=== PATIENT | female | born 1980 | race Caucasian/White ===

== ENCOUNTER 2017-07-25 12:17 | Emergency (ER) | payer MEDICAID, OTHER ==
--- NOTE | 2017-07-25 12:38 | UC ---
Ear Complaint HPI - HPI Summary HPI Summary: pt with head and chest congestion x 5 days. Pt states yesterday sneeze and felt sudden pressure in left ear. Pt states woke this morning and there was blood on pillow. Pt states has discomfort and muffled hearing from left side. Pt took APAP Pt's medications rviewed this visit - History of Current Complaint Stated Complaint: (L) EAR COMPLAINT Time Seen by Provider: 07/25/17 12:27 Hx Obtained From: Patient ?: No Onset/Duration: Sudden Onset Severity Initially: Moderate Severity Currently: Moderate Pain Intensity: 7 - Allergies/Home Medications Allergies/Adverse Reactions: Allergies Allergy/AdvReac Type Severity Reaction Status Date / Time No Known Allergies Allergy Verified 07/25/17 12:40 Home Medications: Home Medications Acetaminophen [Acetaminophen Extra Strength] 1,000 mg PO ONCE PRN 07/25/17 [ History Confirmed 07/25/17] Cholecalciferol TAB* [Vitamin D TAB*] 3,000 units PO DAILY 07/25/17 [History Confirmed 07/25/17] Gabapentin [Neurontin] 500 mg PO DAILY 07/25/17 [History Confirmed 07/25/17] Labetalol TAB* [Trandate TAB*] 200 mg PO BID 07/25/17 [History Confirmed ] Magnesium Oxide [Magnesium] 800 mg PO DAILY 07/25/17 [History Confirmed 07/25/17 ] Omeprazole CAP* [Prilosec CAP* 20 MG] 20 mg PO DAILY 07/25/17 [History Confirmed 07/25/17] Topiramate [Topiramate ER] 100 mg PO BEDTIME 07/25/17 [History Confirmed ] buPROPion HCl [Bupropion HCl Sr] 450 mg PO DAILY 07/25/17 [History Confirmed 05/13] PMH/Surg Hx/FS Hx/Imm Hx Cardiovascular History: Hypertension GI/ History: Gastroesophageal Reflux - Surgical History Surgical History: None - Family History Known Family History: Positive: Hypertension - Social History Occupation: Works From/At Home Lives: With Family Alcohol Use: None Substance Use Type: None Smoking Status (MU): Light Every Day Tobacco Smoker Review of Systems Constitutional: Negative ENT: Ear Ache All Other Systems Reviewed And Are Negative: Yes Physical Exam Triage Information Reviewed: Yes Appearance: Well-Appearing, Well-Nourished, Pain Distress - mild discomfort left ear Vital Signs Reviewed: Yes Eye Exam: Normal Eyes: Positive: Conjunctiva Clear ENT: Positive: Pharynx normal, Nasal congestion, TM red, Other - right TM wnl left TM; hematomat posterior lateral aspect with visible small peforation 5oclock no active bleeding turbinates inflammed. + pnd no exudate no erythema Dental Exam: Normal Neck exam: Normal Neck: Positive: Supple, Nontender Respiratory Exam: Normal Respiratory: Positive: Chest non-tender, Lungs clear, Normal breath sounds, No respiratory distress, No accessory muscle use Cardiovascular Exam: Normal Cardiovascular: Positive: RRR, No Murmur, Pulses Normal Abdominal Exam: Normal Abdomen Description: Positive: Nontender Musculoskeletal Exam: Normal Neurological Exam: Normal Neurological: Positive: Alert Psychological Exam: Normal Psychological: Positive: Normal Response To Family Skin Exam: Normal Ear Complaint Course/Dx - Course Course Of Treatment: pt with peforation left ear with hematoma and OM. Rx augmentin. Tylenol/T+C#3 - (Barbara wrote rx -difficulty with Dr. Marino my account)- precautions discussed. Dr. Davila - pt established there - tomorrow. return precautions - Differential Dx/Diagnosis Provider Diagnoses: perforated TM. URI Discharge - Sign-Out/Discharge Documenting (check all that apply): Discharge - Discharge Plan Condition: Stable Disposition: HOME Prescriptions: Acetaminophen with Codeine [Acetaminophen-Cod #2 Tablet] 1 - 2 tab PO Q6HR PRN # 15 tablet MDD 8 PRN Reason: Pain Amoxicillin/Clavulanate TAB* [Augmentin TAB 875*] 875 mg PO BID #20 tab Fluticasone NASAL SPRAY 50MCG* [Flonase NASAL SPRAY 50MCG*] 2 spray BOTH NARES DAILY #1 btl Patient Education Materials: Ruptured Eardrum (ED), Ear Infection (ED), Upper Respiratory Infection (ED) Referrals: Bright Benedict MD [Primary Care Provider] - Isaias Davila MD [Medical Doctor] - As Soon As Possible (Call tomorrow morning for an appointment) Additional Instructions: - Okay to take Tylenol product (tylenol or tylenol with codeine) every 3 hours for pain. Take with food. Do NOT drive, operate machinery or drink alcohol while taking codeine - Take antibiotics as prescribed until gone - Use nasal spray as instructed - Avoid getting water in your ear as this may cause severe dizziness - Okay to take over the counter decongestant such as sudafed - Contact Dr. Davila tomorrow morning to schedule a follow-up appointment this week. Contact Dr. Davila or go to the emergency department with questions or concerns - Billing Disposition and Condition Condition: STABLE Disposition: HOME
== END 2017-07-25 13:26 | disposition home or self-care (01) ==
LOC: UCCORT 12:17
DX: H72.92 Unspecified perforation of tympanic membrane, left ear (principal); H66.92 Otitis media, unspecified, left ear; J06.9 Acute upper respiratory infection, unspecified; F17.200 Nicotine dependence, unspecified, uncomplicated
CPT/HCPCS: 99202; G0463

== ENCOUNTER 2018-10-20 09:55 | Emergency (ER) | payer OTHER ==
--- OUTSIDE RECORDS SUMMARY | 2018-10-20 10:15 | XMS REPORT | Continuity of Care Document ---
:1980 External Reference #:[id number] Author Name Pauline Monk Care Team Providers Name Role Phone Bright Benedict MD Care Team Information Life Skills Worker Unavailable Bright Benedict MD Primary Care Physician Unavailable Payers Date Identification Numbers Payment Provider Subscriber Policy Number: [id number] [facility] Ashley Collazo PayID: [id number] [address] [place] [address] Family History Date Family Member(s) Observation Comments Father Non Contributory Mother Non Contributory Social History Type Date Description Comments Sex Unknown Occupation Homemaker Tobacco Use Start: Unknown Patient is a current cigarette smoker, smokes every day ETOH Use Rare Use Of Alcohol Recreational Drug Use Never Used Drugs Allergies, Adverse Reactions, Alerts Description No Known Drug Allergies Medications Active Medications SIG Qnty Indications Ordering Provider Date Fluticasone 2 sprays each 29.7ml Isaias Davila, 07/28/2017 Propionate nostril every day M.D. 50mcg/Act Suspension ALL Day Allergy take 1 tablet by 30tabs Isaias Davila, 07/28/2017 10mg mouth once daily M.D. Tablets If It Makes You Drowsy Take It AT Night Gabapentin 1 by mouth three Unknown 400mg times a day Capsules Gabapentin 1 by mouth twice Unknown 100mg daily for 15 days Capsules Labetalol HCL 1 by mouth twice Unknown 200mg a day Tablets Omeprazole 1 by mouth every Unknown 20mg day Capsules DR Bupropion HCL ER (XL) 1 by mouth every Unknown day 300mg Tablets ER 24HR Bupropion HCL ER (XL) 1 by mouth every Unknown day 150mg Tablets ER 24HR Topiramate take one tablet Unknown 100mg by mouth once a Tablets day Magnesium Oxide 2 by mouth daily Unknown 400mg Tablets Vitamin D 2 by mouth every Unknown (Cholecalciferol) day 1000Unit Tablets B Complex 100 TR Unknown 100TR Tablets ER History Medications Prednisone 1 by mouth every 3tabs Isaias Davila, 07/28/2017 - 10mg Tablets morning M.D. 12/27/2017 Amoxicillin twice a day 1 Unknown - 875mg Tablets week. 12/27/2017 Fluticasone Propionate 2 sprays both Unknown - nostrils every day 07/28/2017 50mcg/Act Suspension Vital Signs Date Vital Result Comment 10/04/2018 10:35am Weight 259.00 lb Height 64.25 inches 5'4.25" BMI (Body Mass Index) 44.1 kg/m2 BP Systolic 111 mmHg BP Diastolic 74 mmHg Heart Rate 85 /min O2 % BldC Oximetry 97 % Body Temperature 98.1 F Pain Level 0 04/05/2018 10:02am Weight 239.00 lb Height 64.25 inches 5'4.25" BMI (Body Mass Index) 40.7 kg/m2 BP Systolic 117 mmHg BP Diastolic 86 mmHg Heart Rate 77 /min O2 % BldC Oximetry 98 % Body Temperature 97.0 F Pain Level 0 12/28/2017 9:54am Weight 242.00 lb Height 64.25 inches 5'4.25" BMI (Body Mass Index) 41.2 kg/m2 BP Systolic 96 mmHg BP Diastolic 67 mmHg Heart Rate 83 /min O2 % BldC Oximetry 96 % Body Temperature 97.8 F Pain Level 0 09/21/2017 1:03pm Weight 235.00 lb Height 64.25 inches 5'4.25" BMI (Body Mass Index) 40.0 kg/m2 BP Systolic 109 mmHg BP Diastolic 71 mmHg Heart Rate 76 /min O2 % BldC Oximetry 97 % Body Temperature 98.7 F Pain Level 0 07/28/2017 4:24pm Weight 239.50 lb Height 64.25 inches 5'4.25" BMI (Body Mass Index) 40.8 kg/m2 BP Systolic 118 mmHg BP Diastolic 78 mmHg Heart Rate 96 /min O2 % BldC Oximetry 99 % room air Body Temperature 99.0 F Pain Level 7 Procedures Date Code Description Status 01/04/2018 96678 Cat Scan Orbit/Ear W/O Contrast,computed tomography Completed 01/04/2018 88543 Cat Scan Orbit/Ear W/O Contrast,computed tomography Completed 01/04/2018 02872 Cat Scan Orbit/Ear W/O Contrast,computed tomography Completed 12/28/2017 31884 Nasal Endoscopy, Diag. Completed 09/21/2017 50573 Tympanometry Completed 09/21/2017 28257 Audiometry, Comprehensive Completed Encounters Type Date Location Provider Dx Diagnosis Office Visit 04/05/2018 Main Office Isaias Davila M.D. H69.92 Unspecified 10:00a Eustachian tube disorder, left ear M26.602 Left temporomandibular joint disorder, unspecified Office Visit 01/04/2018 10:15a Main Office Isaias Davila H69.92 Unspecified M.D. Eustachian tube disorder, left ear J31.0 Chronic rhinitis Office Visit 12/28/2017 9:30a Main Office Isaias Davila H69.92 Unspecified M.D. 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
[2018-10-20 10:21] VITALS: BP 131/82
--- NOTE | 2018-10-20 10:52 | UC ---
Skin Complaint HPI - HPI Summary HPI Summary: right foot pain x 5 days drop a knife on her right foot 5 days ago small puncture wound of her foot (2nd and 3rd toes) now the area is red, swollen, very painful pain is 8 out of 10 . worse with walking or being touched better with warm compresses, no fever, no chills - History of Current Complaint Chief Complaint: UCLowerExtremity Time Seen by Provider: 10/20/18 10:25 Stated Complaint: RT FOOT PAIN Hx Obtained From: Patient Hx Last Menstrual Period: October 08 ?: No Onset/Duration: Sudden Onset, Lasting Days - 5, Still Present Timing: Constant Onset Severity: Moderate Current Severity: Severe Pain Intensity: 9 Pain Scale Used: 0-10 Numeric Location: Discrete - right foot 2nd and 3rd toes Character: Swelling, Pain, Redness, Raised, Painful Aggravating Factor(s): Touch Alleviating Factor(s): Heat Associated Signs & Symptoms: Positive: Tenderness. Negative: Nausea, Vomiting, Fever, Chills, Red Streaks Related History: Trauma - puncture wound with a small sharp knife - Allergy/Home Medications Allergies/Adverse Reactions: Allergies Allergy/AdvReac Type Severity Reaction Status Date / Time No Known Allergies Allergy Verified 10/20/18 10:21 PMH/Surg Hx/FS Hx/Imm Hx - Additional Past Medical History Additional PMH: depression, chronic neck pain, migraine headaches, acid reflux, restless leg Cardiovascular History: Hypertension - Surgical History Surgical History: None Surgery Procedure, Year, and Place: x 2 - Family History Known Family History: Positive: Hypertension - Social History Alcohol Use: Occasionally Substance Use Type: None Smoking Status (MU): Light Every Day Tobacco Smoker Type: Cigarettes Amount Used/How Often: 1/2 ppd Length of Time of Smoking/Using Tobacco: 20+ years Have You Smoked in the Last Year: Yes Review of Systems All Other Systems Reviewed And Are Negative: Yes Constitutional: Positive: Negative Eyes: Positive: Negative ENT: Positive: Negative Respiratory: Positive: Negative Is Patient Immunocompromised?: No Physical Exam Triage Information Reviewed: Yes Appearance: Well-Appearing, No Pain Distress, Well-Nourished Vital Signs: Initial Vital Signs Temp 97.7 F 10/20/18 10:15 Pulse 94 10/20/18 10:15 Resp 18 10/20/18 10:15 BP 131/82 10/20/18 10:15 Pulse Ox 98 10/20/18 10:15 Vital Signs Reviewed: Yes Eye Exam: Normal Eyes: Positive: Conjunctiva Clear ENT: Positive: Normal ENT inspection, Hearing grossly normal, Pharynx normal Neck: Positive: Supple, Nontender, No Lymphadenopathy Respiratory: Positive: Chest non-tender, Lungs clear, Normal breath sounds, No respiratory distress Abdomen Description: Positive: Nontender, Soft. Negative: CVA Tenderness (R), CVA Tenderness (L), Distended, Guarding Skin: Positive: Other - right foot / 2nd and 3rd toe: + erythema, swelling, very tneder to touch , warm to touch Course/Dx - Diagnoses Provider Diagnosis: Cellulitis of right foot, Puncture wound of foot Discharge - Sign-Out/Discharge Documenting (check all that apply): Patient Departure All imaging exams completed and their final reports reviewed: No Studies - Discharge Plan Condition: Stable Disposition: HOME Prescriptions: Amoxicillin/Clavulanate TAB* [Augmentin TAB 875*] 875 mg PO BID #20 tab HYDROcodone/ACETAMIN 5-325 MG* [[place] 5-325 TAB*] 1 tab PO Q6H PRN #12 tab MDD 4 PRN Reason: Pain Patient Education Materials: Cellulitis (ED), Puncture Wound (ED) Referrals: Bright Benedict MD [Primary Care Provider] - 3 Days - Billing Disposition and Condition Condition: STABLE Disposition: Home
== END 2018-10-20 10:38 | disposition home or self-care (01) ==
LOC: UCCORT 09:55
DX: S91.331A Puncture wound without foreign body, right foot, initial encounter (principal); L03.115 Cellulitis of right lower limb; W20.8XXA Other cause of strike by thrown, projected or falling object, initial encounter; Y92.9 Unspecified place or not applicable; F17.210 Nicotine dependence, cigarettes, uncomplicated
CPT/HCPCS: 99212; G0463